=== PATIENT | female | born 1955 | race Caucasian/White ===

== ENCOUNTER 2018-11-19 16:33 | Emergency (ER) | payer BC ==
--- NOTE | 2018-11-19 17:16 | EDM.PDOC ---
ED HPI GENERAL MEDICAL PROBLEM - General Chief Complaint: Eye Problems Stated Complaint: PINK EYE Time Seen by Provider: 11/19/18 17:08 Source of Information: Reports: Patient History Limitations: Reports: No Limitations - History of Present Illness INITIAL COMMENTS - FREE TEXT/NARRATIVE: Very pleasant 63-year-old female was doing some yardwork 2 days ago when she noticed significant irritation and swelling around her eyes, left greater than right. Does not have any drainage from her eyes but has significant itching and some periorbital dermatitis. Patient has been applying topical bacitracin with slight improvement. Patient notes symptoms are improved in am but worsen over the course of the day. PCP recommended Zyrtec but patient was concerned regarding possible infection. Patient has a history of seasonal allergies but she has not taken any allergy medication. Her symptoms became more severe today. - Related Data Allergies Allergy/AdvReac Type Severity Reaction Status Date / Time Sulfa (Sulfonamide Allergy Hives Verified 11/19/18 17:03 Antibiotics) Home Meds: Home Meds Cetirizine [ZyrTEC] 10 mg PO BID #30 tab 11/19/18 [Rx] Erythromycin Base [Erythromycin 0.5% Ophth Oint] 1 applic OT BID PRN 5 Days #1 tube 11/19/18 [Rx] Fluticasone Propionate [Flonase] 16 gm NS BID 5 Days #1 bottle 11/19/18 [Rx] Olopatadine [Patanol 0.1% Ophth Soln] 5 ml .XX BID 30 Days #1 bottle 11/19/18 [ Rx] Sertraline [Zoloft] 11/19/18 [History] amLODIPine Besylate [Amlodipine Besylate] 11/19/18 [History] atorvaSTATin [Lipitor] 11/19/18 [History] buPROPion [Wellbutrin] 11/19/18 [History] Past Medical History Cardiovascular History: Reports: Other (See Below) Other Cardiovascular History: ards - Past Surgical History HEENT Surgical History: Reports: Tonsillectomy ED ROS GENERAL - Review of Systems Review Of Systems: ROS reveals no pertinent complaints other than HPI. ED EXAM GENERAL W FULL EYE - Physical Exam Exam: See Below Exam Limited By: No Limitations General Appearance: Alert, WD/WN, Mild Distress Eye Exam: Left Eye: Other (bilateral periorbital erythema and irritation ( possible eczema atopic dermatitis)), Bilateral Eye: EOMI, PERRL Eyelids: Right: Normal Appearance, Left: Erythema Conjunctiva & Sclera: Bilateral: Normal Appearance Extraocular Movements: Bilateral: Intact Pupils: Normal Accommodation Pupillary Reaction: Bilateral: Brisk Anterior Chamber: Bilateral: Normal Appearance Posterior Chamber: Bilateral: Normal Funduscopic Ears: Normal External Exam, Normal Canal, Hearing Grossly Normal, Normal TMs Nose: Normal Inspection, Normal Mucosa, No Blood Throat/Mouth: Normal Inspection, Normal Lips, Normal Teeth, Normal Gums, Normal Oropharynx, Normal Voice, No Airway Compromise Head: Atraumatic, Normocephalic Neck: Normal Inspection Respiratory/Chest: No Respiratory Distress, Lungs Clear, Normal Breath Sounds, No Accessory Muscle Use, Chest Non-Tender Cardiovascular: Normal Peripheral Pulses, Regular Rate, Rhythm, No Edema Neurological: Alert, Oriented, CN II-XII Intact, Normal Cognition, Normal Gait, Normal Reflexes, No Motor/Sensory Deficits Psychiatric: Normal Affect, Normal Mood Skin Exam: Warm, Dry, Intact, Normal Color, No Rash Course - Vital Signs Last Recorded V/S: Last Vital Signs Temp 36.2 C 11/19/18 17:09 Pulse 83 11/19/18 17:09 Resp 16 11/19/18 17:09 BP 159/86 H 11/19/18 17:09 Pulse Ox 96 11/19/18 17:09 Departure - Departure Time of Disposition: 17:27 Disposition: Home, Self-Care 01 Clinical Impression: Allergic conjunctivitis of left eye, Seasonal allergies - Discharge Information Prescriptions: Cetirizine [ZyrTEC] 10 mg PO BID #30 tab Erythromycin Base [Erythromycin 0.5% Ophth Oint] 1 applic OT BID PRN 5 Days #1 tube PRN Reason: Irritability Fluticasone Propionate [Flonase] 16 gm NS BID 5 Days #1 bottle Olopatadine [Patanol 0.1% Ophth Soln] 5 ml .XX BID 30 Days #1 bottle Instructions: Hives, Allergies, Adult Referrals: PCP,None [Primary Care Provider] - 1 Week (PCP recheck in 5-7 days if not improving. Sooner if symptoms worsen or concerns. ) Forms: ED Department Discharge Additional Instructions: 1. Patanol eye drops as directed for allergy symptoms. 2. Zyrtec 10 mg every am and pm x 10 days then as needed. 3. Flonase nasal spray as directed x 10 days then as needed. 4. May consider benadryl 25-50mg at night for allergic reaction/itching. 5. Cool wash cloth to help itching and irritation. 6. See PCP or eye doctor if symptoms not improving in 3-5 days. - Problem List & Annotations (1) Allergic conjunctivitis of left eye SNOMED Code(s): 777873010 Code(s): H10.12 - ACUTE ATOPIC CONJUNCTIVITIS, LEFT EYE Status: Acute (2) Seasonal allergies SNOMED Code(s): 588684088 Code(s): J30.2 - OTHER SEASONAL ALLERGIC RHINITIS Status: Acute - Assessment/Plan Plan: 1. Patanol eye drops as directed for allergy symptoms. 2. Zyrtec 10 mg every am and pm x 10 days then as needed. 3. Flonase nasal spray as directed x 10 days then as needed. 4. May consider benadryl 25-50mg at night for allergic reaction/itching. 5. Cool wash cloth to help itching and irritation. 6. See PCP or eye doctor if symptoms not improving in 3-5 days.
== END 2018-11-19 17:45 | disposition home or self-care (01) ==
LOC: JP.ED 16:33
DX: H10.12 Acute atopic conjunctivitis, left eye (principal); J30.2 Other seasonal allergic rhinitis; Z79.899 Other long term (current) drug therapy; Z88.2 Allergy status to sulfonamides
CPT/HCPCS: 99282